=== PATIENT | female | born 1980 | race Caucasian/White ===

== ENCOUNTER 2025-05-28 08:09 | Day surgery (SDC) | payer OTHER, SELFPAY ==
[2025-05-28] VITALS (8 sets, daily range): BP systolic 118–122; BP diastolic 79–90; PULSE 84–87; RESP 16–18; TEMP 36.3–36.9; O2SAT 98–100; BMI 21.0
[2025-05-28 08:46] LABS: Internal QC Validated? YES +Cl - CLEAR BKGD; Pregnancy, Urine Negative Negative
[2025-05-28 08:47] LABS: Record Kit Lot#,Urine Preg 0000947241
--- NOTE | 2025-05-28 08:58 | PRE.ANES_ITS ---
ASA Classification* ASA Classification ASA Classification: 3 Assessment & Plan Anesthesia* Anesthesia Assessment Anesthesia Assessment: Discussed sedation and/or anesthesia options, risks, benefits, and alternatives with patient/parents/legal guardian/POA. Questions invited. The patient/parents/legal guardian/POA seems to understand and agrees to proceed with anesthesia plan. Reviewed the physical assessment, medical history, allergy history and patient home medications list prior to surgery/procedure/anesthetic and documented any changes. Performed airway and anesthesia risk assessments. Anesthesia Type Anesthesia Type: MAC (discussed MAC with GA as backup) Anesthesia Focused Assessment* Temperature: 98.4 F Pulse Rate: 87 Blood Pressure: 118/79 Respiratory Rate: 18 Pulse Ox: 100 Oxygen Delivery Method: Room Air Airway Assessment Mouth opens: >3 cm Mallampati Score: I Teeth Condition: Intact Neck Range of motion (ROM): Full ROM Labs Anesthesia Preop lab: CBC WBC 4.2 K/mm3 (4.4-11.0) L 05/28/25 08:45 05/28/25 RBC 4.54 M/mm3 (4.2-5.4) 05/28/25 08:45 05/28/25 Hgb 13.6 g/dL (12.0-15.0) 05/28/25 08:45 05/28/25 Hct 38.9 % (37-47) 05/28/25 08:45 05/28/25 Plt Count 142 K/mm3 (150-450) L 05/28/25 08:45 05/28/25 CHEMISTRY COAG Urine Test Negative Negative 05/28/25 08:23 05/28/25 Pre-Assessment Diagnosis/Proposed Procedure Planned Operative Procedure(s): HYSTEROSCOPY DIAGNOSTIC IUD REMOVAL,INSERTION LILETTA IUD Anesthesia History Anesthesia History - management accountant: Anesthesia History - management accountant Hx Hospitalization No 05/19/25 10:15 Any Problems With Anesthesia No 05/19/25 10:15 Cholinesterase deficiency No 05/19/25 10:15 You/Your Family Experience No 05/19/25 10:15 fever (hyperthermia) with Relationship Recent Exposure to Contagious Disease Does patient have nerve No 05/19/25 10:15 stimulator Patient instructed to have device shut off --Does patient have Pacemaker or ICD? When Was Last Pacemaker Check QUESTION #4 FULL TEXT: You/Your Family Experience fever (hyperthermia) with Anesthesia Last Oral Intake Last Oral intake: Last Oral Intake NPO since Meds taken in AM with sips of water? Meds patient instructed to take am of surgery PONV PONV - management accountant: PONV - management accountant Female Yes 05/19/25 10:15 HX of Motion Sickness No 05/19/25 10:15 HX of N/V After Surgery No 05/19/25 10:15 Non-Smoker Yes 05/19/25 10:15 Duration of Surgery greater No 05/19/25 10:15 than 60 minutes Number of Risk Factors 2 05/19/25 10:15 PONV Score Moderate Risk 05/19/25 10:15 Respiratory Assessment Respiratory Assessment - management accountant: Respiratory Tract Infection Hx - management accountant Hx Respiratory Tract Infection No 05/19/25 10:15 STOP Sleep Apnea STOP Sleep Apnea - management accountant: STOP Sleep Apnea - management accountant Hx Hypertension No 05/19/25 10:15 Hx Sleep Apnea Yes 05/19/25 10:15 CPAP Yes: NONCOMPLIANT 05/19/25 10:15 BIPAP No 05/19/25 10:15 Do you snore loudly (louder No 05/19/25 10:15 than talking or can be heard Do you often feel tired/ No 05/19/25 10:15 fatigued/ sleepy during daytime? Has anyone observed you stop No 05/19/25 10:15 breathing during sleep? STOP Results Positive 05/19/25 10:15 QUESTION #5 FULL TEXT : Do you snore loudly (louder than talking or can be heard through closed doors)? Tobacco Use History Tobacco Use History - management accountant: Tobacco Use History - management accountant Tobacco Use Smoking Status Never smoker 05/19/25 10:15 Hx Tobacco Use No 05/19/25 10:15 Years Smoking Packs Smoked per Day Smoking Cessation Date was within the last 15 years Hx Smoking Cessation Date Hx Smoking Cessation Counseling Hematologic Medial History Hematologic Hx - management accountant: Hematologic Medical Hx - food sanitarian Hx of Blood Transfusion Yes 05/19/25 10:15 Hx of Transfusion in last 3 No 05/19/25 10:15 Months Date of Last Transfusion (if within last 3 months) Ever experience any problems No 05/19/25 10:15 with transfusion(s)? Specify any problems Hx of Preganancy in last 3 No 05/19/25 10:15 Months Nurse Filling Out Transfusion DSCHRIBER 05/19/25 10:15 & Questions: Date: 05/19/25 05/19/25 10:15 Time: 10:16 05/19/25 10:15 Patient unable to answer at this time (ie. confused, unrespo /Reproduction History /Reproductive History - management accountant: /Reproductive Hx- management accountant Hx Now No 05/19/25 10:15 Gestational Age (in weeks): EDC: Hx Hx Para Hx Section SAB No 05/19/25 10:15 Active Medications Active Medications: Current Medications Generic Name Dose Route Start Last Admin Trade Name Freq PRN Reason Stop Dose Admin Lactated Ringer's 1,000 mls @ 15 mls/hr 05/28/25 08:15 IV .Q48H CASH Levonorgestrel 1 each 05/28/25 12:15 Levonorgestrel Iud (Liletta) INTRA-UTER 05/28/25 12:16 X1 ONE PFSH Medical History Cirrhosis, alcoholic Varices of esophagus determined by endoscopy Depression Anxiety Alcohol use Cirrhosis Gastric reflux CPAP (continuous positive airway pressure) dependence Non-smoker Home Medications ?Medication ?Instructions ?Recorded ?Last Taken ?Type brexpiprazole 1 mg tablet (Rexulti) 1 mg PO QHS 05/27/25 History bupropion HCl 200 mg tablet,12 hr 300 mg PO DAILY 04/2705/28/25 History sustained-release calcium carbonate 600 mg PO DAILY 05/19/2501/20 History desvenlafaxine succinate 25 mg 25 mg PO DAILY 05/19/25 05/28/25 History tablet,extended release 24 hr desvenlafaxine succinate 50 mg 50 mg PO DAILY 05/19/25 05/28/25 History tablet,extended release 24 hr furosemide 20 mg tablet (Lasix) 20 mg PO DAILY 5 05/27/25 History magnesium 250 mg tablet 250 mg PO DAILY 05/19/2501/20 History omeprazole 40 mg capsule,delayed 40 mg PO DAILY 05/28/25 History release spironolactone 50 mg tablet 50 mg PO DAILY 05/19/25 Un known History trazodone 50 mg tablet 50 mg PO QHS 05/19/25 History tirzepatide 15 mg/0.5 mL 15 mg subcut QWEEK 05/26/25 05/16/25 History subcutaneous pen injector (Jose) rosuvastatin 20 mg tablet 20 mg PO DAILY 05/28/2501/20 History Allergy/AdvReac Type Severity Reaction Status Date / Time NSAIDS (Non-Steroidal AdvReac Severe Other Verified 05/28/25 08:58 Anti-Inflamma Surgical History (Updated 05/19/25 @ 10:22 by Annika Dyer) History of esophagogastroduodenoscopy (EGD) Hx of colonoscopy Social History Smoking Status: Never smoker Review of Systems (Anesthesia) ROS Narrative System reviewed and no additional complaints, except as documented. Physical Exam Const alert, oriented x3 and average body habitus General Appearance: anxious HEENT dentition normal Neck full ROM Resp normal respiratory effort and normal air movement Cardio regular rate Neuro oriented x3 and moves all extremities
[2025-05-28 09:06] LABS: Hematocrit 38.9 % (37-47); Hemoglobin 13.6 g/dL (12.0-15.0); Mean Corp Hgb Conc 35.0 g/dL (32-36); Mean Corpuscular Volume 85.7 fL (81-99); Mean Platelet Vol. 10.0 fl (6.2-12.0); Platelet Count 142 K/mm3 (150-450); RBC Distribution Width CV 12.1 % (11.6-14.6); RBC Distribution Width SD 37.7 fl (35.1-43.9); Red Blood Count 4.54 M/mm3 (4.2-5.4); White Blood Count 4.2 K/mm3 (4.4-11.0)
[2025-05-28] MEDS: Lactated Ringers 1,000 ML 15 ML IV (09:07)
[2025-05-28] MEDS: Lidocaine 1% /Epi 1:100 (20ml) 20 ML Vial (10:10)
[2025-05-28] MEDS: Levonorgestrel IUD (Liletta) 1 EACH INTRA-UTER (10:32)
--- NOTE | 2025-05-28 10:41 | PCM.DC ---
Discharge Instructions Diet Discharge Diet: No restrictions DC O2, CPAP, BIPAP needs Home O2 Discharge instructions: No Dressing / Incision Discharge Activity: May Not Drive (for 24 hours after procedure) and May Not Shower (for 24 hours after procedure) May resume sexual activity in: 1 week (nothing in the vagina and no soaking in water) Ice area for (Minutes): 15 Weight Bearing Status: Weight bearing as tolerated Lifting Restrictions: none Dressing / Incision Call your doctor if you observe: Fever of 101 or Higher, Using more than 1 pad per hour, Shortness of breath, Dizziness, Swelling in the ankles, Chest pain, Increased palpitations (irregular heartbeat), Calf discomfort and Uncontrolled pain Cleanse incision/area with: Soap & Water Follow Up Care Please Follow Up With: Diane Walton DO When: 4 weeks for IUD check Test Results: Test results from this visit will be discussed in further detail at your follow-up appointment, if applicable. I was able to remove the IUD completely. It was embedded into the myometrium. We placed a new Liletta IUD. Discharge Plan Admission Primary Reason for Your Visit: surgery Attending Provider: Diane Walton Primary Care Provider: Jc Arce Instructions Patient Instructions: Hysteroscopy Print Language: Bol[place]ian Discharge Orders/Prescriptions Prescriptions: Continued furosemide [Lasix] 20 mg tablet 20 mg PO DAILY spironolactone 50 mg tablet 50 mg PO DAILY bupropion HCl 200 mg tablet sustained-release 12 hr 300 mg PO DAILY trazodone 50 mg tablet 50 mg PO QHS omeprazole 40 mg capsule,delayed release(DR/EC) 40 mg PO DAILY desvenlafaxine succinate 50 mg tablet extended release 24 hr 50 mg PO DAILY desvenlafaxine succinate 25 mg tablet extended release 24 hr 25 mg PO DAILY Rexulti 1 mg tablet 1 mg PO QHS calcium carbonate 600 mg calcium (1,500 mg) tablet 600 mg PO DAILY magnesium 250 mg tablet 250 mg PO DAILY Mounjaro 15 mg/0.5 mL pen injector 15 mg SUBCUT QWEEK Patient Comments: PLEASE SEE ATTACHED FOR DETAILED DIRECTIONS rosuvastatin 20 mg tablet 20 mg PO DAILY Disposition Disposition (needs filled in before D/C Order can be placed): Home, Self Care
--- NOTE | 2025-05-28 10:43 | OP.PCM_ITS ---
Problems Associated Problem List Diagnoses (1) Malpositioned IUD: Operative Report (Standard) Operative Information Date of Procedure: 05/28/25 Pre-Operative Diagnosis: Embedded IUD Post-Operative Diagnosis: As above Surgery/Procedure Performed: Hysteroscopic removal of embedded IUD with insertion of Liletta IUD package dyer: Yes Executive Casino Host: Tata Mazariegos MS4 Tasks completed by assistant education director: Retracting Type of Anesthesia: MAC RN Documented Start/Stop Times: Operation Date: 05/28/25 09:30 Case Time Into Pre-Op 05/28/25 08:12 Out of Pre-Op 05/28/25 09:43 Anesthesia Start 05/28/25 09:46 Into Room 05/28/25 09:46 Procedure Start 05/28/25 10:05 Procedure End 05/28/25 10:38 Anesthesia End 05/28/25 10:44 Out of Room 05/28/25 10:44 Into Recovery 05/28/25 10:46 Into Phase II Recovery 05/28/25 11:02 Out of Recovery 05/28/25 11:02 Out of Phase II 05/28/25 11:55 Procedure Start Time: 10:05 Procedure Stop Time: 10:38 Select all DRAINS/GRAFTS/IMPLANTS that apply: None Special Medications: None Estimated Blood Loss: < 20 mL Fluids Replaced: See anesthesia record Specimen collected: No Description of surgery: Discussed r/b/a hysteroscopy, IUD removal and IUD reinsertion. Discussed with patient the IUD may not be able to be removed, pieces of the IUD could be left over, and the new IUD could be or become embedded or malpositioned. The patient stated understanding and requested to have a new IUD inserted even if pieces of the IUD were remaining, and even if I thought the new IUD could be or become malpositioned or embedded. The patient was well counseled, and all questions were answered. The patient is satisfied with her IUD and strongly desires a new IUD to be inserted. The patient was taken to the operating room where MAC anesthesia was induced and found to be adequate. She was prepped and draped in dorsal lithotomy position using yellow fin stirrups. A weighted speculum was placed in the vagina to expose the cervix. The anterior lip of the cervix was grasped with a single- tooth tenaculum. The cervix was serially dilated to accommodate the hysteroscope. The hysteroscope was advanced into the uterus, and the uterus was distended with normal saline as distention media. The IUD was noted at the fundus of the uterus with the arm on the patient's left side slightly embedded into the myometrium, and the arm on the patient's right side was more than 50% superficially embedded into the myometrium. A hysteroscopic grasper was inserted through the hysteroscope and with gentle traction and a twisting motion, the left arm was removed from the myometrium. Upon attempting to remove the right arm from the myometrium the arm broke from the IUD. The IUD strings were then grasped with a grasper and the IUD was removed, without the right arm. The hysteroscope was then advanced into the uterus and distended with normal saline, and the right arm was then grasped with a grasper and easily removed from the myometrium. The entire IUD was removed in 2 pieces. Bleeding was scant. The uterus sounded to 7 cm. The Liletta IUD was placed at the fundus of the uterus in usual sterile fashion. The IUD strings were trimmed to 2 cm in length. All instruments were removed from the vagina. A vaginal sweep was performed. Instrument, sponge, sharp counts were correct and patient was taken to the recovery in stable condition. A fluid deficit of 900 mL was noted, however there was normal saline coming back from the uterus and cervical os throughout the procedure with spill of about 200 mL of saline onto the surgical floor. Surgical Findings: IUD at the fundus of the uterus with both IUD arms embedded into the myometrium Complications Complications: No Admit VTE Documentation VTE Present on Admission: No VTE Mechan Device Prophylaxis: SCD's
--- NOTE | 2025-05-28 14:08 | PCM.POST.ANE ---
Anesthesia: Postop Eval I Current Vital Signs Temperature: 97.9 F Pulse Rate: 84 Blood Pressure: 122/88 Respiratory Rate: 18 Pulse Ox: 99 Oxygen Delivery Method: Room Air Assessment Airway patent: Yes Spontaneous unlabored respirations: Yes Mental status: Awake nausea: No Vomiting: No Anesthesia Complication: No Fluid Hydration Crystalloid volume administer (ml): 1,000 Total IV fluid infused: 1,000 Progress Note Anesthesia document: Postop Eval 1 completed: Yes
--- NOTE | 2025-05-28 14:11 | POSTOPAN2_ITS ---
Anesthesia Postop Eval I Sum Postop Eval Completion status Anesthesia document: Postop Eval 1 completed: Yes Anesthesia Postop Eval I Summary Anesthesia Postop Eval I Summary: Anesthesia Postop Eval I: Assessment Summary Airway patent Yes 05/28/25 14:09 CHIEF OF PEDIATRIC UROLOGY.ACAR Spontaneous unlabored Yes 05/28/25 14:09 CHIEF OF PEDIATRIC UROLOGY.ACAR respirations Mental status Awake 05/28/25 14:09 CHIEF OF PEDIATRIC UROLOGY.ACAR nausea No 05/28/25 14:09 CHIEF OF PEDIATRIC UROLOGY.ACAR Vomiting No 05/28/25 14:09 CHIEF OF PEDIATRIC UROLOGY.ACAR Anesthesia Postop Eval I: Fluid Summary Crystalloid volume administer 1,000 05/28/25 14:09 CHIEF OF PEDIATRIC UROLOGY.ACAR (ml) Colloids volume administered ( ml) Blood Product volume administered (ml) Total IV fluid infused 1,000 05/28/25 14:09 CHIEF OF PEDIATRIC UROLOGY.ACAR Anesthesia Postop Eval I: Summary Notes Anesthesia Complication No 05/28/25 14:09 CHIEF OF PEDIATRIC UROLOGY.ACAR Anesthesia Complication Comment: Post-operative progress note Anesthesia: Postop Eval II Evaluation Mental status: Awake and Calm Pain Level: 1 nausea: No Vomiting: No Complications Anesthesia Complication: No
--- NOTE | 2025-05-28 14:11 | PCM.POSTANE2 ---
Anesthesia Postop Eval I Sum Postop Eval Completion status Anesthesia document: Postop Eval 1 completed: Yes Anesthesia Postop Eval I Summary Anesthesia Postop Eval I Summary: Anesthesia Postop Eval I: Assessment Summary Airway patent Yes 05/28/25 14:09 [employer].ACAR Spontaneous unlabored Yes 05/28/25 14:09 [employer]ACAR respirations Mental status Awake 05/28/25 14:09 [employer]ACAR nausea No 05/28/25 14:09 [employer]ACAR Vomiting No 05/28/25 14:09 [employer].ACAR Anesthesia Postop Eval I: Fluid Summary Crystalloid volume administer 1,000 05/28/25 14:09 [employer].ACAR (ml) Colloids volume administered ( ml) Blood Product volume administered (ml) Total IV fluid infused 1,000 05/28/25 14:09 [employer].ACAR Anesthesia Postop Eval I: Summary Notes Anesthesia Complication No 05/28/25 14:09 [employer].ACAR Anesthesia Complication Comment: Post-operative progress note Anesthesia: Postop Eval II Evaluation Mental status: Awake and Calm Pain Level: 1 nausea: No Vomiting: No Complications Anesthesia Complication: No
== END 2025-05-28 11:55 | disposition home or self-care (01) ==
LOC: SDC 08:10 → AC 08:10
PROVIDERS: Anesthesiology; PCP Family Medicine; Referring Provider Obstetrics & Gynecology; Visit Provider Obstetrics & Gynecology
PROC: 0UDB8ZZ Extraction of Endometrium, Via Natural or Artificial Opening Endoscopic (ICD-10-PCS; CPT 58558; principal; 2025-05-28 09:20)
DX: T83.32XA Displacement of intrauterine contraceptive device, initial encounter (principal); F32.A Depression, unspecified; F41.9 Anxiety disorder, unspecified; Z79.899 Other long term (current) drug therapy; X58.XXXA Exposure to other specified factors, initial encounter; Z30.433 Encounter for removal and reinsertion of intrauterine contraceptive device
CPT/HCPCS: 58300; 58301; 00940; 81025; 85027; 86850; 86900; 86901; J2405